=== PATIENT | male | born 1985 | race Caucasian/White ===

== ENCOUNTER 2018-02-26 15:22 | Emergency (ER) | payer BC, OTHER ==
[~2018-02-26] VITALS: Ht 180.3 cm; Wt 90.7 kg
[2018-02-26 16:01] LABS: HEMATOCRIT 43.1 % (42.0-52.0); HEMOGLOBIN 14.4 gm/dL (14.0-18.0); MCH 28.7 pg (26.0-34.0); MCHC 33.5 g/dL (28.0-37.0); MCV 85.7 fL (80.0-100.0); RBC 5.03 mil/uL (4.50-6.00); RDW 13.5 % (10.5-14.5); WBC 8.3 thou/uL (4.0-11.0)
[2018-02-26 16:14] LABS: APTT 25.4 Seconds (24.5-32.8); PROTIME 10.7 Seconds (9.3-11.4)
[2018-02-26 16:55] VITALS: BP 124/69
== END 2018-02-26 16:59 | disposition home or self-care (01) ==
LOC: ER 15:22
PROVIDERS: Emergency Medicine
DX: R04.0 Epistaxis (principal)